=== PATIENT | female | born 1995 | race African-American/Black ===

== ENCOUNTER 2018-02-01 20:28 | Emergency (ER) | payer OTHER ==
[2018-02-01 20:35] VITALS: BP 138/76; TEMP 100.7
[2018-02-01] MEDS ORDERED: IBUPROFEN 600 MG TAB PO STA (21:20)
[2018-02-01] MEDS ORDERED: ALBUTEROL NEBULIZED 2.5 MG/3 ML INHALATION STA (21:37)
--- NOTE | 2018-02-01 21:43 | ED ---
SOB HPI - General Chief Complaint: Shortness of Breath Stated Complaint: ALPHONSO,asthma Time Seen by Provider: 02/01/18 21:10 Source: patient Mode of arrival: ambulatory Limitations: no limitations - History of Present Illness Initial Comments: This patient is 22-year-old woman with history of asthma, who complains of having a constellation of symptoms that started about Sunday. She states that things began with a bit of sore throat, she also then developed what she describes as an asthma attack, which included some wheezing, shortness of breath , nonproductive cough, and some congestion. The patient states that she was using her home inhaler but she does not recall which one it was, and felt like she was getting better by yesterday, but then the sore throat and cough recurred today so she presents to be evaluated. Patient denies chest pain, leg pain or swelling, any element of orthopnea. She has not noted change in urination or bowel movements. MD Complaint: cough, "asthma attack" Onset/Timin -: days(s) Radiation: other (Throat) Quality: burning Consistency: constant Improves With: nothing Worsens With: nothing Known History Of: asthma Associated Symptoms: cough Treatments Prior to Arrival: other - Related Data Home Medications Medication Instructions Recorded Confirmed Albuterol Inhaler [Ventolin Hfa 1 - 2 puff INHALATION Q6HR PRN 02/01/18 02/01/18 Inhaler] Ibuprofen [Motrin Ib] 800 mg PO Q8H PRN 02/01/18 02/01/18 Phenylephrine/Dm/Acetaminop/GG 1 cap PO Q6H PRN 02/01/18 02/01/18 [Mucinex Fast-Max [id number]-[id number]] Previous Rx's Medication Instructions Recorded Albuterol Inhaler [Ventolin Hfa 1 - 2 puff INHALATION Q6HR PRN #1 02/01/18 Inhaler] inhaler Azithromycin [Zithromax Z-pack] 250 mg PO DIRECTED #6 tab 02/01/18 predniSONE 60 mg PO DAILY #30 tab 02/01/18 Allergies Allergy/AdvReac Type Severity Reaction Status Date / Time No Known Allergies Allergy Verified 02/01/18 21:11 Review of Systems ROS Statement: Those systems with pertinent positive or pertinent negative responses have been documented in the HPI. ROS Other: All systems not noted in ROS Statement are negative. Constitutional: Reports: fever. Denies: chills ENT: Reports: throat pain, congestion Respiratory: Reports: cough, dyspnea, wheezes. Denies: hemoptysis Cardiovascular: Denies: chest pain, palpitations, orthopnea, edema, syncope Gastrointestinal: Denies: abdominal pain, vomiting, diarrhea Genitourinary: Denies: dysuria, hematuria Musculoskeletal: Denies: back pain Skin: Denies: rash Neurological: Denies: headache, weakness, numbness Past Medical History Past Medical History: Asthma History of Any Multi-Drug Resistant Organisms: None Reported Past Surgical History: No Surgical Hx Reported Past Psychological History: No Psychological Hx Reported Smoking Status: Never smoker Past Alcohol Use History: None Reported Past Drug Use History: None Reported General Exam Limitations: no limitations General appearance: alert, in no apparent distress Head exam: Present: atraumatic, normocephalic Eye exam: Present: normal appearance. Absent: scleral icterus, conjunctival injection ENT exam: Present: mucous membranes moist, other (There is mild injection of the pharynx with some cobblestoning. Uvula is midline with no edema) Neck exam: Present: normal inspection, full ROM, lymphadenopathy. Absent: tenderness, meningismus Respiratory exam: Present: wheezes. Absent: respiratory distress, rales, rhonchi, stridor, accessory muscle use, decreased breath sounds, prolonged expiratory Cardiovascular Exam: Present: normal rhythm, tachycardia, normal heart sounds. Absent: systolic murmur, diastolic murmur, rubs, gallop GI/Abdominal exam: Present: soft. Absent: distended, tenderness, guarding, rebound, mass Extremities exam: Present: normal inspection, normal capillary refill. Absent: pedal edema, calf tenderness Neurological exam: Present: alert Skin exam: Present: warm, dry, intact, normal color. Absent: rash Course Vital Signs 02/01/18 02/01/18 02/01/18 20:32 22:00 22:07 Temperature 100.7 F H Pulse Rate 121 H 121 H 120 H Respiratory 22 18 18 Rate Blood Pressure 138/76 O2 Sat by Pulse 97 Oximetry Medical Decision Making - Lab Data Lab Results 02/01/18 02/01/18 Range/Units 21:55 21:55 Influenza Type A RNA Not Detected (Not Detectd) Influenza Type B (PCR) Not Detected (Not Detectd) Group A Strep Rapid Negative (Negative) Disposition Clinical Impression: Asthma exacerbation, Upper respiratory infection Disposition: HOME SELF-CARE Condition: Good Instructions: Asthma (ED), Upper Respiratory Infection (ED) Prescriptions: Albuterol Inhaler [Ventolin Hfa Inhaler] 1 - 2 puff INHALATION Q6HR PRN #1 inhaler PRN Reason: Wheezing Azithromycin [Zithromax Z-pack] 250 mg PO DIRECTED #6 tab predniSONE 60 mg PO DAILY #30 tab Referrals: None,Stated [Primary Care Provider] - 1-2 days
[2018-02-01 22:02] VITALS: RESP 18
--- NOTE | 2018-02-01 22:05 | XR ---
EXAMINATION TYPE: XR chest 2V DATE OF EXAM: 02/01/2018 COMPARISON: NONE HISTORY: Fever and cough TECHNIQUE: Frontal and lateral views of the chest are obtained. FINDINGS: Heart and mediastinum are normal. Lungs are clear. Diaphragm is normal. Bony thorax appear s normal. IMPRESSION: Normal chest
[2018-02-01 22:11] VITALS: PULSE 120
[2018-02-01] MEDS ORDERED: predniSONE 20 MG TAB PO STA (22:42)
== END 2018-02-01 22:59 | disposition home or self-care (01) ==
LOC: EC 20:28
DX: J45.901 Unspecified asthma with (acute) exacerbation (principal); J06.9 Acute upper respiratory infection, unspecified; R00.0 Tachycardia, unspecified
CPT/HCPCS: 94640; 87081; 87430; 87502; 71046; 99285; J7512

== ENCOUNTER 2021-01-29 10:15 | Emergency (ER) | payer OTHER ==
--- NOTE | 2021-01-29 11:03 | ED ---
General Adult HPI - General Chief complaint: Shortness of Breath Stated complaint: Asthma Time Seen by Provider: 01/29/21 10:32 Source: patient, RN notes reviewed, old records reviewed Mode of arrival: ambulatory Limitations: no limitations - History of Present Illness Initial comments: 25-year-old female history of asthma presenting for evaluation of cough dyspnea. Patient has had some nasal congestion as well as diarrhea. No reported fevers. She has had a cough which is nonproductive. No central chest pain. Denies current . Patient believes she may have come in contact with coronavirus. She has not been previously diagnosed with coronavirus. - Related Data Home Medications Medication Instructions Recorded Confirmed Albuterol Inhaler [Ventolin Hfa 2 puff INHALATION RT-Q6H PRN 01/29/21 01/29/21 Inhaler] Cider Vinegar [Apple Cider Vinegar] 300 mg PO BID 01/29/21 01/29/21 EPINEPHrine (Auto Inject) [Epipen] 0.3 mg IM ONCE PRN 01/29/21 01/29/21 Ferrous Sulfate [Feosol] 325 mg PO DAILY 01/29/21 01/29/21 Montelukast Sodium [Singulair] 10 mg PO HS 01/29/21 01/29/21 Multivitamins, Thera [Multivitamin 3 tab PO DAILY 01/29/21 01/29/21 (formulary)] Previous Rx's Medication Instructions Recorded predniSONE 50 mg PO DAILY #5 tab 01/29/21 Allergies Allergy/AdvReac Type Severity Reaction Status Date / Time No Known Allergies Allergy Verified 01/29/21 11:09 Review of Systems ROS Statement: Those systems with pertinent positive or pertinent negative responses have been documented in the HPI. ROS Other: All systems not noted in ROS Statement are negative. Past Medical History Past Medical History: Asthma Additional Past Medical History / Comment(s): anemia History of Any Multi-Drug Resistant Organisms: None Reported Past Surgical History: No Surgical Hx Reported Past Psychological History: No Psychological Hx Reported Smoking Status: Never smoker Past Alcohol Use History: None Reported Past Drug Use History: None Reported General Exam Limitations: no limitations General appearance: alert, in no apparent distress Head exam: Present: atraumatic, normocephalic Eye exam: Present: normal appearance, PERRL ENT exam: Present: normal exam Neck exam: Present: normal inspection. Absent: tenderness, meningismus Respiratory exam: Present: wheezes, decreased breath sounds, prolonged expiratory. Absent: respiratory distress Cardiovascular Exam: Present: regular rate, normal rhythm GI/Abdominal exam: Present: soft. Absent: distended, tenderness, guarding, rebound Extremities exam: Present: normal inspection, normal capillary refill. Absent: pedal edema Neurological exam: Present: alert, oriented X3, CN II-XII intact. Absent: motor sensory deficit Psychiatric exam: Present: normal affect, normal mood Skin exam: Present: warm, dry, intact. Absent: cyanosis, diaphoretic Course Vital Signs 01/29/21 01/29/21 01/29/21 10:25 11:44 12:00 Temperature 98.9 F Pulse Rate 90 92 97 Respiratory 18 Rate Blood Pressure 122/70 O2 Sat by Pulse 98 Oximetry Medical Decision Making - Medical Decision Making 25-year-old female history of asthma presenting for evaluation of cough and dyspnea. Patient has a bronchospastic cough and wheezing. X-ray clear, coronavirus negative. Patient will be prescribed oral steroids and will use her nebulized albuterol at home. Return parameters discussed. - Lab Data Lab Results 01/29/21 Range/Units 10:58 Coronavirus (PCR) Not Detected (Not Detectd) Disposition Clinical Impression: Asthma with acute exacerbation Disposition: HOME SELF-CARE Condition: Good Instructions (If sedation given, give patient instructions): Asthma (ED) Prescriptions: predniSONE 50 mg PO DAILY #5 tab Is patient prescribed a controlled substance at d/c from ED?: No Referrals: Chelsey Nielson MD [Primary Care Provider] - 1-2 days Time of Disposition: 12:43
--- NOTE | 2021-01-29 11:26 | XR ---
EXAMINATION TYPE: XR chest 1V portable DATE OF EXAM: 01/29/2021 COMPARISON: 02/01/2018 HISTORY: Cough TECHNIQUE: Single frontal view of the chest is obtained. FINDINGS: The lungs are clear consolidative, interstitial masslike opacity. There is no pleural effusion, pleural thickening or pneumothorax. The heart, pulmonary vasculature, mediastinum and hilum appear normal. The osseous structures are intact. IMPRESSION: No acute cardiopulmonary disease.
[2021-01-29] MEDS ORDERED: IPRATROPIUM-ALBUTEROL 3 ML NEB INHALATION STA (11:36)
[2021-01-29] MEDS ORDERED: ALBUTEROL NEBULIZED 2.5 MG/3 ML INHALATION STA (11:36)
[2021-01-29] MEDS ORDERED: predniSONE 50 MG TAB PO STA (11:36)
[2021-01-29 13:08] VITALS: BP 120/70; PULSE 78; RESP 20; TEMP 98
== END 2021-01-29 13:07 | disposition home or self-care (01) ==
LOC: EC 10:15
DX: J45.901 Unspecified asthma with (acute) exacerbation (principal); Z79.52 Long term (current) use of systemic steroids; Z79.899 Other long term (current) drug therapy; Z20.822 Contact with and (suspected) exposure to COVID-19
CPT/HCPCS: 94640; 87635; 71045; 99285; J7512

== ENCOUNTER 2024-05-14 13:34 | Emergency (ER) | payer OTHER ==
[2024-05-14 13:38] VITALS: TEMP 98.8
--- NOTE | 2024-05-14 14:07 | ED ---
General Adult HPI - General Chief complaint: Headache Stated complaint: migraine Time Seen by Provider: 05/14/24 13:50 Source: patient, EMS, RN notes reviewed Mode of arrival: EMS Limitations: no limitations - History of Present Illness Initial comments: 29-year-old female presenting to the ER via EMS for chief complaint of vomiting. She is also endorsing diffuse, nonspecific abdominal pain. She is unable to describe the quality of the pain. She states these symptoms have been ongoing for years. She states the abdominal pain began "in high school". She reports for years she has struggled with tolerating oral liquids and solids. States she feels very dehydrated today and states her urine is darker than normal. Denies dysuria or urinary frequency/urgency. Otherwise denies any new or worsening symptoms in the past few days. She is currently following with GI specialist Dr. Vincent and states she has a colonoscopy scheduled for May 21. She reports her friend called EMS today because the patient was not returning her calls. Last bowel movement was yesterday and was normal. No other significant past medical history. Patient states she has not drink alcohol in years. Denies history of pancreatitis. Denies previous abdominal surgeries. - Related Data Home Medications Medication Instructions Recorded Confirmed Albuterol Inhaler [Ventolin Hfa 2 puff INHALATION RT-Q6H PRN 01/29/21 01/29/21 Inhaler] Cider Vinegar [Apple Cider Vinegar] 300 mg PO BID 01/29/21 01/29/21 EPINEPHrine (Auto Inject) [Epipen] 0.3 mg IM ONCE PRN 01/29/21 01/29/21 Ferrous Sulfate [Feosol] 325 mg PO DAILY 01/29/21 01/29/21 Montelukast Sodium [Singulair] 10 mg PO HS 01/29/21 01/29/21 Multivitamins, Thera [Multivitamin 3 tab PO DAILY 01/29/21 01/29/21 (formulary)] Previous Rx's Medication Instructions Recorded predniSONE 50 mg PO DAILY #5 tab 01/29/21 Allergies Allergy/AdvReac Type Severity Reaction Status Date / Time No Known Allergies Allergy Verified 05/14/24 13:38 Review of Systems ROS Statement: Those systems with pertinent positive or pertinent negative responses have been documented in the HPI. ROS Other: All systems not noted in ROS Statement are negative. Past Medical History Past Medical History: Asthma Additional Past Medical History / Comment(s): anemia History of Any Multi-Drug Resistant Organisms: None Reported Past Surgical History: No Surgical Hx Reported Past Psychological History: No Psychological Hx Reported Smoking Status: Never smoker Past Alcohol Use History: None Reported Past Drug Use History: None Reported General Exam Limitations: no limitations General appearance: alert, in no apparent distress Head exam: Present: atraumatic, normocephalic, normal inspection Eye exam: Present: normal appearance, PERRL, EOMI. Absent: scleral icterus, conjunctival injection, periorbital swelling ENT exam: Present: normal exam, other (Corners of mouth appear dry b/l) Respiratory exam: Present: normal lung sounds bilaterally. Absent: respiratory distress, wheezes, rales, rhonchi, stridor Cardiovascular Exam: Present: regular rate, normal rhythm, normal heart sounds. Absent: systolic murmur, diastolic murmur, rubs, gallop, clicks GI/Abdominal exam: Present: soft, normal bowel sounds. Absent: distended, tenderness, guarding, rebound, rigid Extremities exam: Present: normal inspection, full ROM, normal capillary refill. Absent: tenderness, pedal edema, joint swelling, calf tenderness Back exam: Present: normal inspection. Absent: CVA tenderness (R), CVA tenderness (L) Neurological exam: Present: alert, oriented X3, CN II-XII intact Psychiatric exam: Present: normal affect, normal mood Skin exam: Present: warm, dry, intact, normal color. Absent: rash Course Vital Signs 05/14/24 05/14/24 05/14/24 13:36 15:03 15:55 Temperature 98.8 F Pulse Rate 105 H 93 102 H Respiratory 18 16 18 Rate Blood Pressure 122/83 116/81 118/76 O2 Sat by Pulse 95 99 Oximetry 05/14/24 19:14 Temperature Pulse Rate 105 H Respiratory 18 Rate Blood Pressure 124/72 O2 Sat by Pulse 97 Oximetry Medical Decision Making - Medical Decision Making Was pt. sent in by a medical professional or institution (, [place], [employer], urgent care, hospital, or skilled nursing...) When possible be specific @ -[No] Did you speak to anyone other than the patient for history (EMS, parent, family, police, friend...)? What history was obtained from this source @ -[No] Did you review nursing and triage notes (agree or disagree)? Why? @ -[I reviewed and agree with nursing and triage notes] Were old charts reviewed (outside hosp., previous admission, EMS record, old EKG, old radiological studies, urgent care reports/EKG's, skilled nursing records)? Report findings @ -[No old charts were reviewed] Differential Diagnosis (chest pain, altered mental status, abdominal pain women, abdominal pain men, vaginal bleeding, weakness, fever, dyspnea, syncope, head ache, dizziness, GI bleed, back pain, seizure, CVA, palpatations, mental health, musculoskeletal)? @ -Differential Abdominal Pain Women: Appendicitis, Cholecystitis, diverticulosis, ischemic bowel, pancreatitis, hepatitis, UTI, gastroenteritis, AAA, incarcerated hernia, bowel obstruction, constipation, inflammatory bowel, hepatitis, peptic ulcer disease, splenic infarction, perforated viscus, vulvitis, ovarian torsion, PID, kidney stone, placenta abruption, this is not meant to be an all-inclusive list EKG interpreted by me (3pts min.). @ -None X-rays interpreted by me (1pt min.). @ -[None done] CT interpreted by me (1pt min.). @ -CT revealed indeterminate 2.7 cm hypodense lesion anterior aspect of left liver lobe, possible focal fat, cyst, or hemangioma. Few borderline sized right lower quadrant mesenteric lymph nodes measuring up to 1 cm, consider mild adenitis. 2.2 cm dominant follicle or functional cyst of left ovary. Gallbladder and pancreas are unremarkable. U/S interpreted by me (1pt. min.). @ -[None done] What testing was considered but not performed or refused? (CT, X-rays, U/S, labs)? Why? @ -Considered ultrasound of gallbladder, patient declined What meds were considered but not given or refused? Why? @ -[None] Did you discuss the management of the patient with other professionals (professionals i.e. , [place], [employer], lab, RT, psych nurse, social worker delinquency prevention, section repairer, teacher, airfield services officer, rn field case manager)? Give summary @ -[No] Was smoking cessation discussed for >3mins.? @ -[No] Was critical care preformed (if so, how long)? @ -[No] Were there social determinants of health that impacted care today? How? (Homelessness, low income, unemployed, alcoholism, drug addiction, transportation, low edu. Level, literacy, decrease access to med. care, detention, rehab)? @ -[No] Was there de-escalation of care discussed even if they declined (Discuss DNR or withdrawal of care, Hospice)? DNR status @ -[No] What co-morbidities impacted this encounter? (DM, HTN, Smoking, COPD, CAD, Cancer, CVA, ARF, Chemo, Hep., AIDS, mental health diagnosis, sleep apnea, morbid obesity)? @ -[None] Was patient admitted / discharged? Hospital course, mention meds given and route, prescriptions, significant lab abnormalities, going to OR and other pertinent info. @ -Patient was discharged. Patient was seen and evaluated for chronic abdominal pain with vomiting. Denies any changes in the past few days. Pain is diffuse and nonspecific. Abdomen is soft and mildly tender in all quadrants. Negative Curiel sign. Patient is given IV fluid bolus and Zofran. Lab work remarkable for lipase of 1662, potassium 3.4, CO2 15, AST 53, ALT 67. CT then performed which revealed indeterminate 2.7 cm hypodense lesion anterior aspect of left liver lobe, possible focal fat, cyst or hemangioma. There are few borderline sized right lower quadrant mesenteric lymph nodes measuring up to [address] was negative for acute process. These findings were discussed with patient in detail. Upon reevaluation, pain is controlled and abdomen remains soft and mildly tender in all quadrants. Patient denies specific pain in right upper quadrant or epigastric area. She was offered admission for IV fluids and further testing with ultrasound of gallbladder. She states she would like to be discharged at this time and will follow-up with her GI specialist. I believe this is reasonable at this time as pain is chronic and there are no new symptoms today. Diagnosis of pancreatitis discussed and advised clear liquid diet for 48 hours. Discussed importance of no alcohol consumption. Strict return/alarm symptoms discussed with patient in detail and she shows understanding and agrees to plan. Zofran starter pack prescribed. Advise follow-up with GI specialist within the week. Patient is agreeable to plan. Case discussed with my attending Dr. Gilmore. Patient discharged in stable condition. Undiagnosed new problem with uncertain prognosis? @ -[No] Drug Therapy requiring intensive monitoring for toxicity (Heparin, Nitro, Insulin, Cardizem)? @ -[No] Were any procedures done? @ -[No] Diagnosis/symptom? @ -Pancreatitis Acute, or Chronic, or Acute on Chronic? @ -Acute Uncomplicated (without systemic symptoms) or Complicated (systemic symptoms)? @ -Uncomplicated Side effects of treatment? @ -[No] Exacerbation, Progression, or Severe Exacerbation? @ -[No] Poses a threat to life or bodily function? How? (Chest pain, [place], [place], pneumonia, PE, COPD, DKA, ARF, appy, cholecystitis, CVA, Diverticulitis, Homicidal, Suicidal, threat to staff... and all critical care pts) @ -Low likelihood - Lab Data Result diagrams: 05/14/24 14:20 05/14/24 14:20 Lab Results 05/14/24 05/14/24 05/14/24 Range/Units 14:20 14:20 14:20 WBC 11.0 H (3.8-10.6) k/uL RBC 6.30 H (3.80-5.40) m/uL Hgb 14.9 (11.4-16.0) gm/dL Hct 48.9 H (34.0-46.0) % MCV 77.7 L (80.0-100.0) fL MCH 23.6 L (25.0-35.0) pg MCHC 30.4 L (31.0-37.0) g/dL RDW 16.7 H (11.5-15.5) % Plt Count 181 (150-450) k/uL MPV 14.2 Neutrophils % 70 % Lymphocytes % 18 % Monocytes % 7 % Eosinophils % 3 % Basophils % 1 % Neutrophils # 7.6 (1.3-7.7) k/uL Lymphocytes # 2.0 (1.0-4.8) k/uL Monocytes # 0.7 (0-1.0) k/uL Eosinophils # 0.4 (0-0.7) k/uL Basophils # 0.1 (0-0.2) k/uL Anisocytosis Slight Microcytosis Slight Sodium 142 (137-145) mmol/L Potassium 3.4 L (3.5-5.1) mmol/L Chloride 106 (98-107) mmol/L Carbon Dioxide 15 L (22-30) mmol/L Anion Gap 21 mmol/L BUN 18 H (7-17) mg/dL Creatinine 0.97 (0.52-1.04) mg/dL Est GFR (CKD-EPI)AfAm >90 (>60 ml/min/1.73 sqM) Est GFR (CKD-EPI)NonAf 80 (>60 ml/min/1.73 sqM) Glucose 97 (74-99) mg/dL Plasma Lactic Acid Valdemar 1.9 (0.7-2.0) mmol/L Calcium 10.2 (8.4-10.2) mg/dL Total Bilirubin 1.1 (0.2-1.3) mg/dL AST 53 H (14-36) U/L ALT 67 H (4-34) U/L Alkaline Phosphatase 75 (38-126) U/L Total Protein 8.2 (6.3-8.2) g/dL Albumin 5.2 H (3.5-5.0) g/dL Lipase 1662 H (23-300) U/L HCG, Qual 05/14/ Range/Units 16:34 WBC (3.8-10.6) k/uL RBC (3.80-5.40) m/uL Hgb (11.4-16.0) gm/dL Hct (34.0-46.0) % MCV (80.0-100.0) fL MCH (25.0-35.0) pg MCHC (31.0-37.0) g/dL RDW (11.5-15.5) % Plt Count (150-450) k/uL MPV Neutrophils % % Lymphocytes % % Monocytes % % Eosinophils % % Basophils % % Neutrophils # (1.3-7.7) k/uL Lymphocytes # (1.0-4.8) k/uL Monocytes # (0-1.0) k/uL Eosinophils # (0-0.7) k/uL Basophils # (0-0.2) k/uL Anisocytosis Microcytosis Sodium (137-145) mmol/L Potassium (3.5-5.1) mmol/L Chloride (98-107) mmol/L Carbon Dioxide (22-30) mmol/L Anion Gap mmol/L BUN (7-17) mg/dL Creatinine (0.52-1.04) mg/dL Est GFR (CKD-EPI)AfAm (>60 ml/min/1.73 sqM) Est GFR (CKD-EPI)NonAf (>60 ml/min/1.73 sqM) Glucose (74-99) mg/dL Plasma Lactic Acid Valdemar (0.7-2.0) mmol/L Calcium (8.4-10.2) mg/dL Total Bilirubin (0.2-1.3) mg/dL AST (14-36) U/L ALT (4-34) U/L Alkaline Phosphatase (38-126) U/L Total Protein (6.3-8.2) g/dL Albumin (3.5-5.0) g/dL Lipase (23-300) U/L HCG, Qual Not Detected Disposition Clinical Impression: Pancreatitis Disposition: HOME SELF-CARE Condition: Stable Instructions (If sedation given, give patient instructions): Pancreatitis (ED) Additional Instructions: Please take Zofran as needed for nausea. Please have clear liquid diet for 48 hours. When restarting diet, eat small, low-fat meals and gradually advance over 3 to 6 days as tolerated. Please follow-up with GI specialist as soon as possible for further testing. Is patient prescribed a controlled substance at d/c from ED?: No Referrals: None,Stated [Primary Care Provider] - 1-2 days Beata Vincent MD [STAFF PHYSICIAN] - 1-2 days Time of Disposition: 19:22
[2024-05-14] MEDS: ONDANSETRON 4 MG/2 ML VIAL IVP STA (14:10)
[2024-05-14] MEDS: KETOROLAC 15 MG/ML 1 ML VIAL IVP STA (14:11)
[2024-05-14 14:34] LABS: Anisocytosis Slight; Basophils # (A) 0.1 k/uL (0-0.2); Basophils % (A) 1 %; Eosinophils # (A) 0.4 k/uL (0-0.7); Eosinophils % (A) 3 %; HCT 48.9 % (34.0-46.0); HGB 14.9 gm/dL (11.4-16.0); Lymphocytes % (A) 18 %; MCH 23.6 pg (25.0-35.0); MCHC 30.4 g/dL (31.0-37.0); MCV 77.7 fL (80.0-100.0); Mean Platelet Volume 14.2; Microcytosis Slight; Monocytes # (A) 0.7 k/uL (0-1.0); Monocytes % (A) 7 %; Neutrophils # (A) 7.6 k/uL (1.3-7.7); Neutrophils % (A) 70 %; Platelet Count 181 k/uL (150-450); RDW 16.7 % (11.5-15.5)
[2024-05-14 14:50] LABS: ALT 67 U/L (4-34); AST 53 U/L (14-36); African American GFR (CKD) >90 (>60 ml/min/1.73 sqM); Albumin 5.2 g/dL (3.5-5.0); Alkaline Phosphatase 75 U/L (38-126); Anion Gap 21 mmol/L; Blood Urea Nitrogen 18 mg/dL (7-17); Calcium 10.2 mg/dL (8.4-10.2); Carbon Dioxide 15 mmol/L (22-30); Chloride 106 mmol/L (98-107); Glucose 97 mg/dL (74-99); Lipase 1662 U/L (23-300); Non-African American GFR(CKD) 80 (>60 ml/min/1.73 sqM); Potassium 3.4 mmol/L (3.5-5.1); Sodium 142 mmol/L (137-145); Total Bilirubin 1.1 mg/dL (0.2-1.3); Total Protein 8.2 g/dL (6.3-8.2)
[2024-05-14] MEDS: SODIUM CHLORIDE 0.9% 1,000 ML IV STA (15:03)
[2024-05-14 15:56] VITALS: RESP 18
--- NOTE | 2024-05-14 18:44 | CT ---
EXAMINATION TYPE: CT abdomen pelvis w con DATE OF EXAM: 05/14/2024 COMPARISON: NONE HISTORY: 29-year-old female abdominal pain TECHNIQUE: Contiguous axial scanning of the abdomen and pelvis following administration of 100 ml Iso juan jose 300 IV contrast. Delayed images through the kidneys and coronal/sagittal reconstructions perform ed. CT DLP: 1280.1 mGycm Automated exposure control for dose reduction was used. FINDINGS: The heart is normal size without pericardial effusion. Lung bases without pleural effusion. Lobulated hypodensity along the anterior falciform ligament could represent focal fat or an underlyin g cyst measuring 3.7 cm wide. Venous system is patent. No biliary ductal dilatation. Gallbladder, adrenal glands, kidneys, spleen, pancreas within normal limits. No dilated small bowel, free fluid, or free air. A few borderline-sized right lower quadrant mesenteric lymph nodes measuring up to 1 cm and likely re active/post inflammatory. Normal appendix. No significant stool burden. Bladder is nondistended. Uterus is retroverted. Follicular changes of the ovaries. Thin-walled cyst m easuring 2.3 cm left ovary. No abnormal fluid collection the pelvis or pelvic lymphadenopathy. Bones: No osseous destructive process. IMPRESSION: 1. INDETERMINATE 2.7 CM HYPODENSE LESION ANTERIOR ASPECT OF THE LEFT LIVER LOBE. POSSIBLE FOCAL FAT, CYST, OR HEMANGIOMA. A BENIGN ETIOLOGY IS FAVORED. OUTPATIENT ULTRASOUND EVALUATION TO FURTHER CHARAC TERIZE. 2. A FEW BORDERLINE-SIZED RIGHT LOWER QUADRANT MESENTERIC LYMPH NODES MEASURING UP TO 1 CM. CONSIDER A MILD MESENTERIC ADENITIS. 3. A 2.2 CM DOMINANT FOLLICLE OR FUNCTIONAL CYST OF THE LEFT OVARY.
[2024-05-14 19:15] VITALS: BP 124/72; PULSE 105
[2024-05-14 19:35] LABS: Amorphous Sediment,Urine Rare /hpf; Appearance,Urine Turbid (Clear); Bilirubin,Urine 2+ (Negative); Blood,Urine Large (Negative); Color,Urine Red; Glucose,Urine (UA) Negative (Negative); Ketones,Urine 4+ (Negative); Leukocyte Esterase,Urine Moderate (Negative); Mucus,Urine Many /hpf; Nitrite,Urine Negative (Negative); PH, Urine 6.5 (5.0-8.0); Protein,Urine 2+ (Negative); RBC,Urine >182 /hpf (0-5); Specific Gravity,Urine 1.028 (1.001-1.035); Squamous Epithelial Cell,Urine 4 /hpf (0-4); WBC,Urine 13 /hpf (0-5)
[2024-05-14] MEDS: ONDANSETRON 4 MG ODT STARTER PACK 2 TAB BTL PO STA (19:35)
== END 2024-05-14 19:47 | disposition home or self-care (01) ==
LOC: EC 13:34
DX: K85.90 Acute pancreatitis without necrosis or infection, unspecified (principal); N83.202 Unspecified ovarian cyst, left side
CPT/HCPCS: 36415; 80053; 83605; 83690; 85025; 81001; 84703; 74177; 99285; 96374; 96375; 96361; J2405; J1885; S0119; Q9967

== ENCOUNTER → 2024-10-13 | Outpatient (CLI) | payer OTHER ==
--- NOTE | 2024-10-13 11:53 | CT ---
EXAMINATION TYPE: CT cervical spine wo con CT DLP: 420.9 mGycm, Automated exposure control for dose reduction was used. DATE OF EXAM: 10/13/2024 11:39 AM COMPARISON: None. CLINICAL INDICATION:Female, 29 years old with history of M54.12 CC/ELECTRONIC ORDER/RLB 09/19/24; [facility] , CERVICAL NEURITIS, PAIN, STATIC SHOCK. TECHNIQUE: Axial CT images from the skull base to the inferior aspect of T2 we obtained without intra venous contrast. Coronal and sagittal reformatted images were also reviewed. FINDINGS: Fracture: None. Osseous structures: Unremarkable Vertebral alignment: No spondylolisthesis. Reversal of the normal cervical lordosis which may be due to patient position versus muscle spasm. Spinal canal/Neural Foramina: No evidence of significant spinal canal narrowing. No evidence for sign ificant neural foraminal stenosis. Neck soft tissues: Prevertebral soft tissues are within normal limits. Other: The airway is patent. The lung apices are clear. IMPRESSION: 1. No evidence of cervical spine fracture. 2. No significant degenerative disc disease. [facility], , 10/13/2024 11:51 AM
== END | disposition home or self-care (01) ==
LOC: RADCTMAIN 11:04
PROVIDERS: ATTEND Family Medicine
DX: M54.12 Radiculopathy, cervical region (principal)
CPT/HCPCS: 72125

== ENCOUNTER → 2024-11-03 | Outpatient (CLI) | payer OTHER ==
--- NOTE | 2024-11-03 10:47 | XR ---
EXAMINATION TYPE: XR chest 2V DATE OF EXAM: 11/03/2024 9:18 AM COMPARISON: Chest radiographs from 01/29/2021 CLINICAL INDICATION: Female, 29 years old with history of G47.33 SLEEP APNEA;J45.909 ASTHMA; [facility] TECHNIQUE: XR chest 2V Frontal and lateral views of the chest. FINDINGS: Lungs/Pleura: There is no evidence of pleural effusion, focal consolidation, or pneumothorax. Pulmonary vascularity: Unremarkable. Heart/mediastinum: Cardiomediastinal silhouette is unremarkable. Device projects over the heart. Musculoskeletal: No acute osseous pathology. Other findings: None Lines/Tubes: IMPRESSION: No acute cardiopulmonary disease/process. [facility], , 11/03/2024 10:45 AM
[2024-11-03 14:53] LABS: Basophils # (A) 0.05 X 10*3/uL (0.00-0.10); Basophils % (A) 0.9 %; Eosinophils # (A) 0.31 X 10*3/uL (0.04-0.35); Eosinophils % (A) 5.5 %; HCT 38.6 % (37.2-46.3); HGB 11.1 g/dL (12.0-15.0); Lymphocytes # (A) 1.29 X 10*3/uL (0.90-5.00); Lymphocytes % (A) 22.8 %; MCH 22.9 pg (27.0-32.0); MCHC 28.8 g/dL (32.0-37.0); MCV 79.6 FL (80.0-97.0); Mean Platelet Volume 12.9 FL (9.5-12.2); Monocytes # (A) 0.39 X 10*3/uL (0.20-1.00); Monocytes % (A) 6.9 %; NRBC Per 100 WBC 0 X 10*3/uL (0.00-0.01); Neutrophils % (A) 63.7 %; Platelet Count 326 X 10*3/uL (140-440); RBC 4.85 X 10*6/uL (4.10-5.20); RDW 13.9 % (11.5-14.5); WBC 5.65 X 10*3/uL (4.50-10.00)
[2024-11-04 11:46] LABS: Latex IgE Class CLASS 0
== END | disposition home or self-care (01) ==
LOC: LABWHC1 08:01
PROVIDERS: ATTEND Internal Medicine Sleep Medicine
DX: J45.909 Unspecified asthma, uncomplicated (principal); G47.33 Obstructive sleep apnea (adult) (pediatric); Q21.12 Patent foramen ovale; R42 Dizziness and giddiness
CPT/HCPCS: 36415; 71046; 82785; 85025; 86003

== ENCOUNTER → 2024-12-02 | Outpatient (CLI) | payer OTHER ==
--- NOTE | 2024-12-02 13:49 | NM ---
EXAMINATION TYPE: NM gastric emptying static DATE OF EXAM: 12/02/2024 COMPARISON: NONE CLINICAL INDICATION: Female, 29 years old with history of R11.2 nausea; Following administration of 2 mCi Tc 99m Sulfur Colloid with 3 oz scrambled eggs, 1 piece of toast wi th butter, and 6 oz of water, projection images of the abdomen were obtained 10 minutes post ingestio n. Patient Emptying Values 1 Hour 39 % 2 Hours 81 % 3 Hours 98 % 4 Hours 100 % Gastroesophagel reflux: None IMPRESSION: Gastric emptying: Within normal limits Gastroesophageal reflux: Not identified [facility], , 12/02/2024 1:47 PM
== END | disposition home or self-care (01) ==
LOC: RADNMMAIN 06:47
PROVIDERS: ATTEND Internal Medicine Gastroenterology
DX: R11.2 Nausea with vomiting, unspecified (principal)
CPT/HCPCS: 78264; A9541